=== PATIENT | male | born 1970 | race African-American/Black ===

== ENCOUNTER → 2016-10-07 | Day surgery (SDC) | payer BC ==
[~2016-10-07] MED LIST: AMLODIPINE-BEN1 EAC3 PO; PAIN RELIEF500 M2 PO
--- NOTE | ~2016-10-07 | OR ---
Unit #: [id number] #: [id number] Patient: RUDDY HOLCOMB [id number] [facility]. [place], [place] [address] [id number] O MR#: [id number] NAME: RUDDY HOLCOMB ROOM: Date of Procedure: 10/07/2016 Admission Date: 10/07/2016 Surgeon: Neeraj Roe Jr., M.D. : 1970 Attending Physician: Neeraj Roe Jr., M.D. Primary Care Physician: Thom Gannon M.D. OPERATIVE REPORT INDICATION FOR PROCEDURE The patient is a 46-year-old black male, who recently presented to the office complaining of a recurrent mass of the occiput of the base of the skull posteriorly. Apparently, this removed, but have recurred. He is brought back in this time for removal of this, appears to be a large lipoma approximately 10 to 12 cm in diameter. 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 ANESTHESIA General with endotracheal intubation and 0.5% Marcaine with epinephrine locally. PROCEDURE PERFORMED Excision of large lipomatous mass of the occipital scalp using a #10 blade scalpel down to the periosteum of the bone. DESCRIPTION OF PROCEDURE The patient was positioned in supine position. After being anesthetized and intubated, he was placed in prone position, prepped and draped in routine fashion for excision of the lipomatous mass of the occipital scalp just to the right of the midline. An elliptical incision was made around the lesion with it being totally excised from the surrounding tissue and down to the fascia of the muscle including the periosteum of the occiput. After the lesion was completely removed with a #10 blade scalpel, it was sent to pathology. Hemostasis was achieved with Bovie cautery. The wound was irrigated and after again hemostasis was achieved with several small vessels being ligated with [id number] 2-0 Vicryl sutures, the fascia of the muscle was reinforced with interrupted 2-0 Vicryl sutures. The deeper subcutaneous tissue approximated with interrupted 3-0 Vicryl sutures and the skin edges were approximated with stainless-steel skin clips and skin stapling device and interrupted 2-0 nylon simple sutures. Ointment and sterile compressive dressing was applied externally. Estimated blood loss 115 mL. The patient received less than 2000 mL crystalloid solution during the procedure. Sponges and instrument counts were correct x3. No drains were used. No complications. The patient was Unit #: [id number] #: [id number] Patient: RUDDY HOLCOMB taken to the recovery room with stable vital signs in satisfactory condition. Dictated by... Neeraj Roe Jr. MAzam CARLIN/emiliano TD: 10/08/2016 00:41 JOB #: [id number] OPERATIVE REPORT X Neeraj Roe MD X PROCEDURE OPERATIVE NOTE
== END | disposition home or self-care (01) ==
LOC: CSUR 08:50
DX: L01.02 Bockhart's impetigo (principal); L90.5 Scar conditions and fibrosis of skin; E65 Localized adiposity; I10 Essential (primary) hypertension; Z79.899 Other long term (current) drug therapy; Z98.890 Other specified postprocedural states
CPT/HCPCS: 82947; 88304; J0330; J1100; J2250; J2270; J2710; J3010